=== PATIENT | male | born 1965 | race Caucasian/White ===

== ENCOUNTER 2017-04-18 17:39 | Emergency (ER) | payer BC, MEDICAID ==
[2017-04-18] MEDS: IPRATROPIUM (NEB) 0.5 MG/2.5 ML AMP NEB (20:00)
[2017-04-18] MEDS: ALBUTEROL 0.083% (NEB) 2.5 MG/3 ML AMP NEB (20:00)
== END 2017-04-18 22:43 | disposition home or self-care (01) ==
LOC: FTE 17:39
DX: J20.9 Acute bronchitis, unspecified (principal)
CPT/HCPCS: 71010; 94664; 99284-25

== ENCOUNTER 2018-05-02 08:36 | Emergency (ER) | payer MEDICAID, BC ==
[2018-05-02] MEDS: DIPHTH/TET/ACEL PERTUSS (ADULT) 0.5 ML VIAL IM* (09:44)
== END 2018-05-02 10:01 | disposition home or self-care (01) ==
LOC: FTE 08:36
DX: S40.022A Contusion of left upper arm, initial encounter (principal); I10 Essential (primary) hypertension; W54.0XXA Bitten by dog, initial encounter; Y92.9 Unspecified place or not applicable; Z23 Encounter for immunization
CPT/HCPCS: 90471; 90715; 99283-25

== ENCOUNTER 2018-05-21 13:20 | Emergency (ER) | payer MEDICAID | END 2018-05-21 15:33 | disposition home or self-care (01) | LOC: FTE 13:20 | DX: R05 Cough (principal); I10 Essential (primary) hypertension; Z87.891 Personal history of nicotine dependence | CPT/HCPCS: 99283; Z7502 ==